=== PATIENT | female | born 1995 | race Caucasian/White ===

== ENCOUNTER 2016-03-09 13:55 | Emergency (ER) | payer OTHER ==
[2016-03-09 15:24] VITALS: BP 116/81
--- NOTE | 2016-03-09 15:54 | UC ---
Respiratory Complaint HPI - HPI Summary HPI Summary: Cough, nasal congestion, feverish, aches, ST, malaise starting yesterday. Denies n/v/d or trouble breathing. - History of Current Complaint Chief Complaint: UCRespiratory Stated Complaint: SORE THROAT Time Seen by Provider: 03/09/16 15:34 Hx Obtained From: Patient Hx Last Menstrual Period: 02/22/16 ?: No Onset/Duration: Gradual Onset, Lasting Days Timing: Constant Severity Initially: Mild Severity Currently: Moderate Character: Cough: Nonproductive Aggravating Factors: Nothing Alleviating Factors: OTC Meds Associated Signs And Symptoms: Positive: Chills, URI, Nasal Congestion. Negative: Wheezing - Allergies/Home Medications Allergies/Adverse Reactions: Allergies Allergy/AdvReac Type Severity Reaction Status Date / Time Penicillins Allergy Severe HIVES, Verified 12/23/15 11:11 FAYE SWELLING Clindamycin Allergy Rash Verified 03/09/16 15:24 PMH/Surg Hx/FS Hx/Imm Hx Previously Healthy: Yes - Surgical History Surgical History: Yes Surgery Procedure, Year, and Place: REPAIR OF DEVIATED SEPTUM. TONSILLECTOMY AGE 5 - Family History Known Family History: Positive: None Family History: no reported cardio vascular issues in family lineage - Social History Occupation: Student Lives: Alone Alcohol Use: Rare Substance Use Type: None Smoking Status (MU): Never Smoked Tobacco Review of Systems Constitutional: Fever, Chills, Fatigue Skin: Negative Eyes: Negative ENT: Sore Throat, Nasal Discharge Respiratory: Cough Cardiovascular: Negative Gastrointestinal: Negative Genitourinary: Negative Motor: Negative Neurovascular: Negative Musculoskeletal: Negative Neurological: Negative Psychological: Negative All Other Systems Reviewed And Are Negative: Yes Physical Exam Triage Information Reviewed: Yes Appearance: No Pain Distress, Well-Nourished Vital Signs: Initial Vital Signs Temp 99.9 F 03/09/16 15:19 Pulse 118 03/09/16 15:19 Resp 18 03/09/16 15:19 BP 116/81 03/09/16 15:19 Pulse Ox 100 03/09/16 15:19 Vital Signs Reviewed: Yes Eye Exam: Normal Eyes: Positive: Conjunctiva Clear ENT: Positive: Pharynx normal, Nasal congestion, Nasal drainage, TMs normal, Tonsillar swelling. Negative: Tonsillar exudate Dental Exam: Normal Neck exam: Normal Neck: Positive: Supple, Nontender, No Lymphadenopathy Respiratory Exam: Normal Respiratory: Positive: Chest non-tender, Lungs clear, Normal breath sounds, No respiratory distress, No accessory muscle use Cardiovascular: Positive: No Murmur, Tachycardia Abdominal Exam: Normal Abdomen Description: Negative: CVA Tenderness (R), CVA Tenderness (L) Musculoskeletal Exam: Normal Neurological Exam: Normal Psychological Exam: Normal Skin Exam: Normal UC Diagnostic Evaluation - Laboratory O2 Sat by Pulse Oximetry: 100 Respiratory Course/Dx - Differential Dx/Diagnosis Provider Diagnoses: Influenza like illness Discharge - Discharge Plan Condition: Stable Disposition: HOME Patient Education Materials: Influenza (ED) Forms: *School Release Referrals: Non Staff,Doctor [Primary Care Provider] - Additional Instructions: Call or return if you develop increasing fever, shortness of breath, chest pain , bloody sputum, or otherwise worsen. If you have not improved at all after several days, contact your primary care physician or return here.
== END 2016-03-09 15:58 | disposition home or self-care (01) ==
LOC: UCCORT 13:55
DX: J11.1 Influenza due to unidentified influenza virus with other respiratory manifestations (principal); Z88.0 Allergy status to penicillin; Z88.1 Allergy status to other antibiotic agents
CPT/HCPCS: 99211; G0463

== ENCOUNTER 2016-05-02 08:50 | Emergency (ER) | payer OTHER ==
[2016-05-02] MEDS ORDERED: Ondansetron ODT TAB* 4 MG PO ONE (10:01)
--- NOTE | 2016-05-02 10:33 | UC ---
General HPI - HPI Summary HPI Summary: states she is projectile vomiting since 2 am today. she has body aches and feels hot and cold. She started feeling nauseated about 2300 last PM and woke up vomiting at 2 AM. She also has had diarrhea. She drank water trying to hydrate and vomited soon after that. She feels tired, no fevers, she does know of some contacts on campus with similar sx. - History of Current Complaint Chief Complaint: UCGI Stated Complaint: VOMITING Time Seen by Provider: 05/02/16 10:22 Associated Signs & Symptoms: Positive: Diarrhea, Decreased Oral Intake, Vomiting - Allergy/Home Medications Allergies/Adverse Reactions: Allergies Allergy/AdvReac Type Severity Reaction Status Date / Time Penicillins Allergy Severe HIVES, Verified 05/02/16 10:00 FAYE SWELLING Clindamycin Allergy Rash Verified 05/02/16 10:00 PMH/Surg Hx/FS Hx/Imm Hx Previously Healthy: Yes - Surgical History Surgical History: Yes Surgery Procedure, Year, and Place: REPAIR OF DEVIATED SEPTUM. TONSILLECTOMY AGE 5 - Family History Known Family History: Negative: Cardiac Disease Family History: no reported cardio vascular issues in family lineage - Social History Alcohol Use: Rare Substance Use Type: None Smoking Status (MU): Never Smoked Tobacco Review of Systems Constitutional: Fatigue Skin: Negative Eyes: Negative ENT: Negative Respiratory: Negative Cardiovascular: Negative Gastrointestinal: Vomiting, Diarrhea Genitourinary: Negative Motor: Negative Neurovascular: Negative Musculoskeletal: Negative Neurological: Negative Psychological: Negative All Other Systems Reviewed And Are Negative: Yes Physical Exam Triage Information Reviewed: Yes Appearance: Ill-Appearing - lying on exam table in dark room. Vital Signs: Initial Vital Signs Temp 99.4 F 05/02/16 09:55 Pulse 109 05/02/16 09:55 Resp 24 05/02/16 09:55 BP 92/61 05/02/16 09:55 Pulse Ox 100 05/02/16 09:55 Eye Exam: Normal ENT Exam: Normal ENT: Positive: Pharynx normal, TMs normal, Other: - tongue is moist.. Negative : Nasal drainage Dental Exam: Normal Neck exam: Normal Neck: Positive: Supple, Nontender, No Lymphadenopathy Respiratory Exam: Normal Respiratory: Positive: Lungs clear, Normal breath sounds, No respiratory distress, No accessory muscle use Cardiovascular: Positive: RRR, No Murmur, Pulses Normal, Brisk Capillary Refill Abdominal Exam: Normal Abdomen Description: Positive: Nontender, Soft. Negative: CVA Tenderness (R), CVA Tenderness (L), Distended, Guarding, Peritoneal Signs, Pulsatile Mass Bowel Sounds: Positive: Present Musculoskeletal Exam: Normal Neurological Exam: Normal Psychological Exam: Normal Skin Exam: Normal Re-Evaluation - Re-Evaluation First Eval Change: Improved - she is much improved aty least 1 hr after zofran 4mgs was given. she is sitting up and smiling. she has had 20 oz combined fluid to drink of gatorade adn nicolás destiny without vomiting/diarrhea for over 1 hour. BP rpt improved at SBP of low 100 with nml heart rate. Course/Dx - Course Course Of Treatment: she is improved. discussed the importance of hydration and urinating at least once every 8 hrs. - Differential Dx - Multi-Symptom Differential Diagnoses: Other - gastroenteritis Provider Diagnoses: Viral gastroenteritis Discharge - Discharge Plan Condition: Stable Disposition: HOME Prescriptions: Ondansetron ODT TAB* [Zofran 4 MG Odt TAB*] 4 mg PO Q6H PRN #20 tab.odt PRN Reason: Nausea Patient Education Materials: Acute Nausea and Vomiting (ED), Gastroenteritis ( ED) Forms: *School Release Referrals: Non Staff,Doctor [Primary Care Provider] - Additional Instructions: Follow up at [facility] in 1-2 days. If your symptoms worsen, you are not able to urinate at least once every 8 hrs, develop abdominal pain or any bleeding, lightheadedness, you should go to the ER. Immodium will help with diarrhea as well. Equal parts of low calorie gatorade to water.
[2016-05-02 12:06] VITALS: BP 106/68
== END 2016-05-02 12:14 | disposition home or self-care (01) ==
LOC: UCCORT 08:50
DX: A08.4 Viral intestinal infection, unspecified (principal); Z88.1 Allergy status to other antibiotic agents; Z88.0 Allergy status to penicillin
CPT/HCPCS: 99212; G0463

== ENCOUNTER 2017-04-01 09:50 | Emergency (ER) | payer OTHER ==
[2017-04-01 10:43] VITALS: BP 96/67
--- NOTE | 2017-04-01 11:27 | UC ---
Complaint Female HPI - HPI Summary HPI Summary: PT STATES HAS "SYMPTOMS OF A UTI", DESCRIBES BURN WITH FRQUENT URINATION AND HESTANCY SINCE THIS AM. DENIES VAGINAL D/C. LMP NOW. WOULD LIKE A SCREEN FOR STD WHILE HERE. AGAIN, DENIES S/S'S STD JUST THINKS GOOD IDEA TO BE CHECKED. - History Of Current Complaint Chief Complaint: UCGU Stated Complaint: URINARY Time Seen by Provider: 04/01/17 11:08 Hx Obtained From: Patient Hx Last Menstrual Period: 03/25/17 ?: No Onset/Duration: Gradual Onset Timing: Constant Pain Intensity: 8 Character: Burning Aggravating Factor(s): Nothing Alleviating Factor(s): Nothing Associated Signs And Symptoms: Negative: Fever, Back Pain, Vaginal Bleeding/ Discharge, Vaginal Discharge Related Hx: Similar Episode/Dx as: - UTI - Allergies/Home Medications Allergies/Adverse Reactions: Allergies Allergy/AdvReac Type Severity Reaction Status Date / Time MS Penicillins [Penicillins] Allergy Severe HIVES, Verified 04/01/17 10:43 FAYE SWELLING clindamycin Allergy Hives Verified 04/01/17 10:44 Home Medications: Home Medications Cranberry Conc/C/Bacill Coag [Azo Cranberry Tablet] 450 mg PO 04/01/17 [History] PMH/Surg Hx/FS Hx/Imm Hx Previously Healthy: Yes GI/ History: Other - UTI'S Other GI/ History: UTI'S - Surgical History Surgical History: Yes Surgery Procedure, Year, and Place: REPAIR OF DEVIATED SEPTUM. TONSILLECTOMY AGE 5 - Family History Known Family History: Positive: None, Diabetes Negative: Cardiac Disease, Hypertension Family History: no reported cardio vascular issues in family lineage - Social History Occupation: Student Lives: Dormitory/Roommates Alcohol Use: Weekly Substance Use Type: None Smoking Status (MU): Never Smoked Tobacco Have You Smoked in the Last Year: No - Immunization History Vaccination Up to Date: Yes Review of Systems Constitutional: Negative Skin: Negative Eyes: Negative ENT: Negative Respiratory: Negative Cardiovascular: Negative Gastrointestinal: Negative Genitourinary: Dysuria, Frequency, Urgency Motor: Negative Neurovascular: Negative Musculoskeletal: Negative Neurological: Negative Psychological: Negative Is Patient Immunocompromised?: No All Other Systems Reviewed And Are Negative: Yes Physical Exam Triage Information Reviewed: Yes Vital Signs: Initial Vital Signs Temp 98.8 F 04/01/17 10:36 Pulse 77 04/01/17 10:36 Resp 18 04/01/17 10:36 BP 96/67 04/01/17 10:36 Pulse Ox 100 04/01/17 10:36 Vital Signs Reviewed: Yes Eye Exam: Normal ENT: Positive: Normal ENT inspection Neck: Positive: Supple, Nontender, No Lymphadenopathy Respiratory: Positive: Lungs clear, Normal breath sounds, No respiratory distress Cardiovascular: Positive: RRR, No Murmur, Pulses Normal Abdomen Description: Positive: Nontender, No Organomegaly, Soft. Negative: CVA Tenderness (R), CVA Tenderness (L) Bowel Sounds: Positive: Present Musculoskeletal: Positive: No Edema Neurological Exam: Normal Neurological: Positive: Muscle Tone Normal Psychological: Positive: Age Appropriate Behavior Skin Exam: Normal - pt has lmp now and opted for urine std testing given no s/s' s of std. Complaint Female Dx - Course Course Of Treatment: pt took azo thus no u/a, urine culture and gc/chlamydia are pending. will tx presumptively for uti. - Differential Dx/Diagnosis Provider Diagnoses: DYSURIA. Discharge - Discharge Plan Condition: Stable Disposition: HOME Prescriptions: Nitrofurantoin Macrocrystal [Nitrofurantoin] 100 mg PO BID 5 Days #10 capsule Patient Education Materials: Urinary Tract Infection in Women (DC) Additional Instructions: FOLLOW UP [facility] IN 5[facility]7 DAYS FOR A RECHECK OR SOONER IF WORSE.
--- NOTE | 2017-04-03 14:33 | ED ---
Progress - Progress Note Progress Note: Group B strep in urine. On macrobid. please change to bactrim DS for 5 days. Rx has been sent. Course/Dx - Course Course Of Treatment: pt took azo thus no u/a, urine culture and gc/chlamydia are pending. will tx presumptively for uti.
== END 2017-04-01 11:40 | disposition home or self-care (01) ==
LOC: UCCORT 09:50
DX: R30.0 Dysuria (principal); B95.1 Streptococcus, group B, as the cause of diseases classified elsewhere
CPT/HCPCS: 87077; 87086; 87491; 87591; 99212; G0463

== ENCOUNTER 2017-06-02 19:22 | Emergency (ER) | payer OTHER ==
[2017-06-02 20:10] VITALS: BP 107/61
--- NOTE | 2017-06-02 20:26 | UC ---
Lower Extremity/Ankle HPI - HPI Summary HPI Summary: Pt c/o right foot and great toe pain, s/p falling on stair while intoxicated. - History of Current Complaint Chief Complaint: UCLowerExtremity Stated Complaint: RIGHT FOOT INJURY Time Seen by Provider: 06/02/17 20:06 Hx Obtained From: Patient Hx Last Menstrual Period: 05/20/17 ?: No - pt denies heterosexual contact Onset/Duration: Sudden Onset, Lasting Hours, Still Present Severity Initially: Mild Severity Currently: Moderate Pain Intensity: 9 Aggravating Factor(s): Standing, Ambulation Alleviating Factor(s): Rest, Elevation Able to Bear Weight: Yes - minimal - Risk Factors Gout Risk Factors: Alcohol Abuse DVT Risk Factors: Negative Septic Arthritis Risk Factor: Negative - Allergies/Home Medications Allergies/Adverse Reactions: Allergies Allergy/AdvReac Type Severity Reaction Status Date / Time Penicillins Allergy Severe HIVES, Verified 06/02/17 20:00 FAYE SWELLING clindamycin Allergy Hives Verified 04/01/17 10:44 Home Medications: Home Medications NK [No Home Medications Reported] 06/02/17 [History Confirmed 06/02/17] PMH/Surg Hx/FS Hx/Imm Hx Previously Healthy: Yes - Surgical History Surgical History: Yes Surgery Procedure, Year, and Place: REPAIR OF DEVIATED SEPTUM. TONSILLECTOMY AGE 5 - Family History Known Family History: Positive: None, Diabetes Negative: Cardiac Disease, Hypertension Family History: no reported cardio vascular issues in family lineage - Social History Occupation: Student Lives: With Family Alcohol Use: Weekly Substance Use Type: None Smoking Status (MU): Never Smoked Tobacco Have You Smoked in the Last Year: No - Immunization History Vaccination Up to Date: Yes Review of Systems Constitutional: Negative Skin: Negative Eyes: Negative ENT: Negative Respiratory: Negative Cardiovascular: Negative Gastrointestinal: Negative Genitourinary: Negative Motor: Decreased ROM - right great toe Neurovascular: Negative Musculoskeletal: Arthralgia - right foot, Decreased ROM, Edema - right great toe , Myalgia - right foot Neurological: Negative Psychological: Negative Is Patient Immunocompromised?: No All Other Systems Reviewed And Are Negative: Yes Physical Exam Triage Information Reviewed: Yes Appearance: Well-Appearing Vital Signs: Initial Vital Signs Temp 99 F 06/02/17 20:01 Pulse 82 06/02/17 20:01 Resp 18 06/02/17 20:01 BP 107/61 06/02/17 20:01 Pulse Ox 97 06/02/17 20:01 Vital Signs Reviewed: Yes Eye Exam: Normal ENT: Positive: Hearing grossly normal Dental Exam: Normal Respiratory: Positive: No respiratory distress Musculoskeletal: Positive: Strength Limited @ - right great toe, ROM Limited @ - right great toe, Edema @ - right great toe Neurological Exam: Normal Psychological Exam: Normal Skin Exam: Normal Diagnostics - Radiology No standard instances Radiology Interpretation Completed By: Radiologist - 3 views of the right foot demonstrates no fracture. No other bone or joint abnormality is noted. IMPRESSION: No fracture of the right foot is noted. Lower Extremity Course/Dx - Differential Dx/Diagnosis Differential Diagnosis/HQI/PQRI: Contusion, Sprain, Strain Provider Diagnoses: right foot strain. right great toe strain Discharge - Sign-Out/Discharge Documenting (check all that apply): Discharge - Discharge Plan Condition: Stable Disposition: HOME Patient Education Materials: Foot Sprain (ED), R.I.C.E. Treatment (ED) Referrals: [facility] [place] PHYSICIAN REFERRAL [Outside] - If Needed Bethel Singh MD [Medical Doctor] - If Needed Non Staff,Doctor [Primary Care Provider] - - Billing Disposition and Condition Condition: STABLE Disposition: HOME
--- NOTE | 2017-06-02 20:46 | RAD ---
Indication: Right foot pain. 3 views of the right foot demonstrates no fracture. No other bone or joint abnormality is noted. IMPRESSION: No fracture of the right foot is noted.
== END 2017-06-02 21:15 | disposition home or self-care (01) ==
LOC: UCCORT 19:22
DX: S93.501A Unspecified sprain of right great toe, initial encounter (principal); W10.9XXA Fall (on) (from) unspecified stairs and steps, initial encounter; Y92.9 Unspecified place or not applicable; Z88.0 Allergy status to penicillin; Z88.3 Allergy status to other anti-infective agents
CPT/HCPCS: 99213; G0463

== ENCOUNTER 2017-10-16 15:39 | Emergency (ER) | payer OTHER ==
[2017-10-16 16:23] VITALS: BP 106/59
--- NOTE | 2017-10-16 16:50 | UC ---
Respiratory Complaint HPI - HPI Summary HPI Summary: 22 year old female presents with 2 week history of non-productive cough. States the cough has been worsening in frequency and intensity over past 3-4 days. States is worse when she lies down at night and it frequently wakes her from sleep. Associated with some occasional chills. Denies fever, nasal congestion, sinus pain/pressure, sore throat, CP, SOB, abdominal pain, N/V. - History of Current Complaint Chief Complaint: UCRespiratory Stated Complaint: COUGH/CONGESTION Time Seen by Provider: 10/16/17 16:34 Hx Obtained From: Patient Hx Last Menstrual Period: 09/16/17 ?: No Onset/Duration: Gradual Onset, Lasting Days Pain Intensity: 0 Character: Cough: Nonproductive Aggravating Factors: Other - lying down Alleviating Factors: Nothing Associated Signs And Symptoms: Positive: Chills. Negative: Dyspnea, Fever, Pleuritic Chest Pain, Wheezing, Hemoptysis, Dizziness, Nasal Congestion, Sinus Discomfort - Allergies/Home Medications Allergies/Adverse Reactions: Allergies Allergy/AdvReac Type Severity Reaction Status Date / Time Penicillins Allergy Severe HIVES, Verified 06/02/17 20:00 FAYE SWELLING clindamycin Allergy Hives Verified 04/01/17 10:44 Home Medications: Home Medications Norgestimate-Ethinyl Estradiol [Ortho-Cyclen 28 Tablet] 1 each PO DAILY [History Confirmed 10/16/17] PMH/Surg Hx/FS Hx/Imm Hx - Additional Past Medical History Additional PMH: Noncontributory - Surgical History Surgical History: Yes Surgery Procedure, Year, and Place: REPAIR OF DEVIATED SEPTUM. TONSILLECTOMY AGE 5 - Family History Family History: Noncontributory - Social History Occupation: Student Lives: Dormitory/Roommates Alcohol Use: Weekly Substance Use Type: None Smoking Status (MU): Never Smoked Tobacco Have You Smoked in the Last Year: No - Immunization History Vaccination Up to Date: Yes Review of Systems Constitutional: Chills Skin: Negative Eyes: Negative ENT: Negative Respiratory: Cough Cardiovascular: Negative Gastrointestinal: Negative Is Patient Immunocompromised?: No All Other Systems Reviewed And Are Negative: Yes Physical Exam Triage Information Reviewed: Yes Appearance: Well-Appearing, No Pain Distress, Well-Nourished Vital Signs: Initial Vital Signs Temp 98.6 F 10/16/17 16:17 Pulse 87 10/16/17 16:17 Resp 17 10/16/17 16:17 BP 106/59 10/16/17 16:17 Pulse Ox 100 10/16/17 16:17 Vital Signs Reviewed: Yes Eyes: Positive: Conjunctiva Clear. Negative: Discharge ENT: Positive: Hearing grossly normal, TMs normal, Uvula midline. Negative: Pharyngeal erythema, Nasal congestion, Nasal drainage, Tonsillar swelling, Tonsillar exudate Neck: Positive: Supple, Nontender, No Lymphadenopathy Respiratory Exam: Other - loose non-productive cough Respiratory: Positive: Lungs clear, Normal breath sounds, No respiratory distress Cardiovascular: Positive: RRR, No Murmur Neurological: Positive: Alert Skin Exam: Normal UC Diagnostic Evaluation - Laboratory O2 Sat by Pulse Oximetry: 100 Respiratory Course/Dx - Course Course Of Treatment: 22 year old female with 2 week history of progressively worsening non-productive cough. Exam was unremarkable except for the presence of a loose, non-productive cough. Her symptoms were likely viral at onset but considering the duration and worsening of symptoms a secondary bacterial infection should be considered. Will treat with antibiotics and symptomatic care. She is to follow up with primary care if no improvement in symptoms. Warning symptoms reviewed. Verbalizes understanding and agrees with POC. - Differential Dx/Diagnosis Differential Diagnosis/HQI/PQRI: Bronchitis, Lower Resp Infection Provider Diagnoses: Acute bronchitis Discharge - Sign-Out/Discharge Documenting (check all that apply): Patient Departure All imaging exams completed and their final reports reviewed: No Studies - Discharge Plan Condition: Stable Disposition: HOME Prescriptions: Azithromyxin GREGORY (NF) [Z-Gregory (Zithromax) 250 mg tabs #6] 2 tab PO .TODAY, THEN 1 DAILY #6 tab Benzonatate CAP* [Tessalon 100 MG CAP*] 100 mg PO TID PRN #30 cap PRN Reason: Cough Patient Education Materials: Acute Bronchitis (ED) Referrals: No Primary Care Phys,NOPCP [Primary Care Provider] - [facility] [place]] - If Needed Additional Instructions: Start azythromycin 2 tabs today then 1 tab a day for next 4 days. Take Tessalon Perles 1 cap every 8 hours as needed for cough. Drink plenty of fluids. Take over the counter acetaminophen (Tylenol) or ibuprofen (Advil, Motrin) as needed for any aches or pains. Follow up with your primary care provider if symptoms do not improve. You may call the [facility] Physician Referral Service if you need assistance with establishing with a primary care provider or you may call one of the local primary care providers in the [facility] which were provided to you. Seek immediate medical attention in the emergency room if you have persistent fever greater than 100.5 F despite taking acetaminophen or ibuprofen, have chest pain, shortness of breath, or you are coughing up blood. - Billing Disposition and Condition Condition: STABLE Disposition: Home
== END 2017-10-16 16:55 | disposition home or self-care (01) ==
LOC: UCCORT 15:39
DX: J20.9 Acute bronchitis, unspecified (principal); Z88.0 Allergy status to penicillin; Z88.1 Allergy status to other antibiotic agents
CPT/HCPCS: 99212; G0463